=== PATIENT | female | born 1985 | race African-American/Black ===

== ENCOUNTER → 2019-02-15 | Outpatient (CLI) | payer OTHER ==
[~2019-02-15] MED LIST: CONRAY-43 43% 50ML VIAL (Q9960) As Ordered ONE; PROHANCE 279.3MG/ML 5ML VIAL (A9576) As Ordered ONE
--- NOTE | 2019-02-15 09:33 | REP ---
MR ARTHROGRAM OF THE RIGHT SHOULDER: TECHNIQUE: Axial T2 fat sat, coronal oblique T1, T2 fat sat, post arthrogram axial T1 fat sat, proton density, coronal oblique T1 fat sat, T2 sat, sagittal oblique T2 fat sat, ABER T1 fat sat. There is ill-defined high signal in the supraspinatus and infraspinatus tendons compatible with moderate degree of tendinopathy. I do not see a discrete rotator cuff tear. I do not see significant hypertrophy changes at the acromioclavicular joint. The acromion is type 1. The biceps tendon is within the bicipital groove. There is no tenosynovitis. There is no Hill-Sachs deformity. The deltoid muscle demonstrates no abnormal signal. Biceps labral complex is intact. I do not see evidence of a labral tear. There is no bone marrow signal abnormality. There is no bone marrow edema or occult fracture. Small amount of subacromial fluid is seen. IMPRESSION: Moderate supraspinatus and infraspinatus tendinopathy. I do not see a discrete rotator cuff tear or labral tear. There is small amount of subacromial fluid. Electronically Signed by Matthew Carlos MD 02/16/2019 02:40 P
--- NOTE | 2019-02-15 10:18 | REP ---
Reason For Exam/Comment: Right shoulder pain Procedure: Right shoulder MRI arthrogram The procedure was performed by DAVID Marie, under the direct supervision of Dr. Carlos. The benefits and risks including but not limited to pain, infection, bleeding and anaphylaxis were explained to the patient and informed consent was obtained both verbally and written. Directly prior to the start of the procedure, a formal timeout was completed in the procedure room. Technique: The right glenohumeral joint was localized using fluoroscopic guidance. The skin was prepped and draped in the usual sterile fashion. 5 mL of 1% lidocaine was used as a local anesthetic. Using fluoroscopic guidance a 22-gauge spinal needle was inserted and advanced to the at glenohumeral joint space . 3 mL of Conray 43 was injected to verify needle placement. A 12 mL solution containing 20 ml of sterile saline and a 0.15 ml of ProHance was injected into the joint. The needle was removed and the patient was taken MRI for post procedural imaging. The patient tolerated the procedure well and there were no immediate complications. 0.3 minutes of fluoroscopy time was utilized for this procedure. Reviewed by DAVID Love 02/15/2019 08:29 A Electronically Signed by Matthew Carlos MD 02/15/2019 10:09 A
== END ==
LOC: M RADPRO 06:16
PROVIDERS: ATTEND Clinical Nurse Specialist Psychiatric/Mental Health, Adult
DX: M25.511 Pain in right shoulder (principal); M75.80 Other shoulder lesions, unspecified shoulder
CPT/HCPCS: 23350; 73223; 77002; A9576; Q9960